=== PATIENT | female | born 1945 | race Caucasian/White ===

== ENCOUNTER 2017-02-02 13:15 | Outpatient (CLI) | payer MEDICARE, OTHER | END 2017-02-02 13:16 | disposition home or self-care (01) | LOC: RT.S 13:15 | PROVIDERS: ATTEND Registered Nurse | DX: R00.2 Palpitations (principal) | CPT/HCPCS: 93005 ==

== ENCOUNTER 2017-04-15 22:32 | Outpatient (CLI) | payer MEDICARE, OTHER | END 2017-04-15 22:33 | disposition critical access hospital (66) | LOC: EMS 22:32 | PROVIDERS: ATTEND Surgery | DX: R00.2 Palpitations (principal); M79.602 Pain in left arm | CPT/HCPCS: A0425; A0427 ==

== ENCOUNTER 2017-04-15 23:08 | Emergency (ER) | payer MEDICARE, OTHER ==
[2017-04-15 23:24] LABS: BILIRUBIN,URINE NEGATIVE (NEGATIVE)
[2017-04-15 23:27] LABS: UA w/ MICROSCOPIC CHARGE YES
[2017-04-15 23:30] LABS: UR CULTURE IF IND INDICATED
[2017-04-15] MEDS ORDERED: SODIUM CHLORIDE 0.9% 1,000 ML IV ONE (23:46)
[2017-04-15 23:53] LABS: BASOPHILS % (AUTO) 0.9 %; EOSINOPHILS # (AUTO) 0.2 10^3/uL (0.0-0.7); EOSINOPHILS % (AUTO) 4.7 %; HCT - HEMATOCRIT 43.8 % (37.0-47.0); HGB - HEMOGLOBIN 14.5 g/dL (12.0-16.0); LYMPHOCYTES # (AUTO) 1.4 10^3/uL (1.5-3.5); LYMPHOCYTES % (AUTO) 27.1 %; MEAN CORPUSCULAR HEMOGLOBIN 28.8 pg (27.0-31.0); MEAN CORPUSCULAR HGB CONC 33.2 g/dL (32.0-36.0); MEAN CORPUSCULAR VOLUME 86.8 fL (81.0-99.0); MEAN PLATELET VOLUME 9.2 fL (7.9-10.8); MONOCYTES # (AUTO) 0.4 10^3/uL (0.0-1.0); MONOCYTES % (AUTO) 7.9 %; NEUTROPHILS # (AUTO) 3.1 10^3/uL (1.5-6.6); NEUTROPHILS % (AUTO) 59.4 %; NUCLEATED RED BLOOD CELLS AUTO 0.1 /100WBC; RED BLOOD COUNT 5.05 10^6/uL (4.20-5.40); RED CELL DISTRIBUTION WIDTH 13.9 % (12.0-15.0); UNCORRECTED WHITE BLOOD COUNT 5.2 x10^3/uL; WHITE BLOOD COUNT 5.2 x10^3/uL (4.8-10.8)
[2017-04-16 00:02] LABS: ALBUMIN/GLOBULIN RATIO 1.4 (1.0-2.2); BILIRUBIN,TOTAL 0.3 mg/dL (0.2-1.0); CALCIUM 9.4 mg/dL (8.5-10.3); CREATININE 0.6 mg/dL (0.4-1.0); TOTAL PROTEIN 7.1 g/dL (6.7-8.2)
[2017-04-16 00:03] LABS: D-DIMER < 200.0 ng/mL (200.0-255.0)
[2017-04-16 00:08] LABS: INR 0.9 (0.8-1.2); PT - PROTHROMBIN TIME 9.9 secs (9.9-12.6)
--- NOTE | 2017-04-16 00:10 | XRAY Preliminary Report ---
Exam: XR Chest 1 View IMPRESSION: Small hiatal hernia. No acute cardiopulmonary process. [facility] SITE ID: [id number]
--- NOTE | 2017-04-16 00:13 | XRAY Report ---
EXAM: CHEST RADIOGRAPHY EXAM DATE: 04/15/2017 11:32 PM. CLINICAL HISTORY: Chest pressure. COMPARISON: 01/19/2011. TECHNIQUE: 1 view. FINDINGS: Lungs/Pleura: No focal opacities evident. No pleural effusion. No pneumothorax. Mediastinum: Within exam limitations, cardiomediastinal contour is normal. Other: Small hiatal hernia. IMPRESSION: Small hiatal hernia. No acute cardiopulmonary process. [facility] Referring Provider Line: [phone] SITE ID: [id number]
[2017-04-16 00:16] LABS: PARTIAL THROMBOPLASTIN TIME 26.6 secs (24.9-33.3)
[2017-04-16] MEDS ORDERED: SODIUM CHLORIDE 0.9% 1,000 ML IV ONE (00:24)
--- NOTE | 2017-04-16 00:55 | ED Physician Documentation ---
PD HPI CHEST PAIN - Stated complaint Stated Complaint: PALPATATIONS - Chief complaint Chief Complaint: Cardiac - History obtained from History obtained from: Patient, EMS - History of Present Illness Timing - onset: Today Timing - onset during: Rest Timing - details: Gradual onset, Now resolved Associated symptoms: Palpitations. No: Shortness of air, Diaphoresis, Nausea, Vomiting, Feeling faint / dizzy Similar symptoms before: No diagnosis Recently seen: Not recently seen - Additional information Additional information: Patient is a 71 year old female with a history of anxiety who is presenting to the emergency department for palpitations. patient states that they started tonight. patient states that she can normally control them but tonight they lasted more than usual. Patient denied any chest pain, shortness of breath, nausea, vomiting or drug use. Review of Systems Constitutional: denies: Fever, Chills, Myalgias Eyes: denies: Decreased vision, Photophobia Ears: denies: Ear pain, Drainage/discharge Nose: denies: Congestion, Sinus pressure / pain Throat: denies: Sore throat Cardiac: reports: Palpitations. denies: Chest pain / pressure, Calf pain Respiratory: denies: Dyspnea, Cough, Wheezing GI: denies: Nausea, Vomiting, Constipation : denies: Dysuria, Frequency, Hesitancy Skin: denies: Rash, Lesions, Laceration (s) Musculoskeletal: denies: Neck pain, Back pain, Extremity pain Neurologic: denies: Generalized weakness, Focal weakness, Altered mental status , Headache, Head injury, LOC Psychiatric: reports: Anxiety. 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 HEENT: Cataracts - Present Medications Home Medications: Ambulatory Orders Medication Instructions Recorded Confirmed Triamterene/Hydrochlorothiazid 1 tab PO DAILY 04/15/17 04/15/17 [Triamterene-Hctz 37.5-25 mg Cp] - Allergies Allergies/Adverse Reactions: Allergies Allergy/AdvReac Type Severity Reaction Status Date / Time Penicillins Allergy Unknown UNKNOWN Verified 04/15/17 23:15 Sulfa (Sulfonamide Allergy Unknown UNKNOWN Verified 04/15/17 23:15 Antibiotics) - Social History Does the pt smoke?: No Smoking Status: Never smoker PD ED PE NORMAL - Vitals Vital signs reviewed: Yes - General General: Alert and oriented X 3, Well developed/nourished - HEENT HEENT: Atraumatic, PERRL - Neck Neck: Supple, no meningeal sign, No JVD - Respiratory Respiratory: No respiratory distress, Clear bilaterally - Abdomen Abdomen: Soft, Non tender, Non distended - Derm Derm: Normal color, Warm and dry, No rash - Extremities Extremities: No deformity, No calf tenderness / cord - Neuro Neuro: Alert and oriented X 3, No motor deficit, No sensory deficit, Normal speech PD ED PE EXPANDED - Cardiac Cardiac: Tachy Results - Vitals Vitals: Vital Signs - 24 hr 04/15/17 04/15/17 04/15/17 23:12 23:18 23:48 Temperature 36.6 C Heart Rate 139 H 123 H 127 H Respiratory 22 18 20 Rate Blood Pressure 183/130 H 186/122 H O2 Saturation 96 98 99 04/16/17 00:05 Temperature Heart Rate 129 H Respiratory 16 Rate Blood Pressure 184/109 H O2 Saturation 97 Oxygen O2 Source Room air - EKG (time done) 2327 Rate: Rate (enter#) (125) Rhythm: Sinus tachycardia [place]: Normal Intervals: Normal ID QRS: LVH Ischemia: Normal ST segments Compare to prior EKG: Unchanged from prior EKG - Labs Labs: Laboratory Tests 04/15/17 04/15/17 04/15/17 23:16 23:34 23:34 WBC 5.2 RBC 5.05 Hgb 14.5 Hct 43.8 MCV 86.8 MCH 28.8 MCHC 33.2 RDW 13.9 Plt Count 208 MPV 9.2 Neut # 3.1 Lymph # 1.4 L [place] # 0.4 Eos # 0.2 Baso # 0.0 Absolute Nucleated RBC 0.00 Nucleated RBCs 0.1 PT INR APTT D-Dimer Sodium 142 Potassium 4.0 Chloride 106 Carbon Dioxide 28 Anion Gap 8.0 BUN 16 Creatinine 0.6 Estimated GFR (MDRD) 98 Glucose 115 H Calcium 9.4 Total Bilirubin 0.3 AST 19 ALT 15 Alkaline Phosphatase 55 Troponin I B-Natriuretic Peptide Total Protein 7.1 Albumin 4.1 Globulin 3.0 Albumin/Globulin Ratio 1.4 Lipase 55 H TSH Urine Color YELLOW Urine Clarity CLEAR Urine pH 7.0 Ur Specific [place] <=1.005 Urine Protein NEGATIVE Urine Glucose (UA) NEGATIVE Urine Ketones NEGATIVE Urine Occult Blood TRACE-LYSE Urine Nitrite NEGATIVE Urine Bilirubin NEGATIVE Urine Urobilinogen 0.2 (NORMAL) Ur Leukocyte Esterase SMALL H Urine RBC 0-5 Urine WBC 4-5 Ur Squamous Epith Cells FEW Squamous Urine Bacteria Few Ur Microscopic Review INDICATED Urine Culture Comments INDICATED Urine Opiates Screen NEGATIVE Ur Oxycodone Screen NEGATIVE Urine Methadone Screen NEGATIVE Ur Propoxyphene Screen NEGATIVE Ur Barbiturates Screen NEGATIVE Ur Tricyclics Screen NEGATIVE Ur Phencyclidine Scrn NEGATIVE Ur Amphetamine Screen NEGATIVE U Methamphetamines Scrn NEGATIVE U Benzodiazepines Scrn NEGATIVE Urine Cocaine Screen NEGATIVE U Cannabinoids Screen NEGATIVE Ethyl Alcohol 6.1 04/15/17 04/15/17 04/15/17 23:34 23:34 23:34 WBC RBC Hgb Hct MCV MCH MCHC RDW Plt Count MPV Neut # Lymph # [place] # Eos # Baso # Absolute Nucleated RBC Nucleated RBCs PT 9.9 INR 0.9 APTT 26.6 D-Dimer < 200.0 L Sodium Potassium Chloride Carbon Dioxide Anion Gap BUN Creatinine Estimated GFR (MDRD) Glucose Calcium Total Bilirubin AST ALT Alkaline Phosphatase Troponin I < 0.04 B-Natriuretic Peptide 164 H Total Protein Albumin Globulin Albumin/Globulin Ratio Lipase TSH Urine Color Urine Clarity Urine pH Ur Specific [place] Urine Protein Urine Glucose (UA) Urine Ketones Urine Occult Blood Urine Nitrite Urine Bilirubin Urine Urobilinogen Ur Leukocyte Esterase Urine RBC Urine WBC Ur Squamous Epith Cells Urine Bacteria Ur Microscopic Review Urine Culture Comments Urine Opiates Screen Ur Oxycodone Screen Urine Methadone Screen Ur Propoxyphene Screen Ur Barbiturates Screen Ur Tricyclics Screen Ur Phencyclidine Scrn Ur Amphetamine Screen U Methamphetamines Scrn U Benzodiazepines Scrn Urine Cocaine Screen U Cannabinoids Screen Ethyl Alcohol 04/15/17 23:34 WBC RBC Hgb Hct MCV MCH MCHC RDW Plt Count MPV Neut # Lymph # [place] # Eos # Baso # Absolute Nucleated RBC Nucleated RBCs PT INR APTT D-Dimer Sodium Potassium Chloride Carbon Dioxide Anion Gap BUN Creatinine Estimated GFR (MDRD) Glucose Calcium Total Bilirubin AST ALT Alkaline Phosphatase Troponin I B-Natriuretic Peptide Total Protein Albumin Globulin Albumin/Globulin Ratio Lipase TSH 1.85 Urine Color Urine Clarity Urine pH Ur Specific [place] Urine Protein Urine Glucose (UA) Urine Ketones Urine Occult Blood Urine Nitrite Urine Bilirubin Urine Urobilinogen Ur Leukocyte Esterase Urine RBC Urine WBC Ur Squamous Epith Cells Urine Bacteria Ur Microscopic Review Urine Culture Comments Urine Opiates Screen Ur Oxycodone Screen Urine Methadone Screen Ur Propoxyphene Screen Ur Barbiturates Screen Ur Tricyclics Screen Ur Phencyclidine Scrn Ur Amphetamine Screen U Methamphetamines Scrn U Benzodiazepines Scrn Urine Cocaine Screen U Cannabinoids Screen Ethyl Alcohol - Rads (name of study) chest x-ray Radiology: Final report received (small hiatal hernia, no cardiopulmonary abnormality) PD MEDICAL DECISION MAKING - ED course Complexity details: reviewed old records, reviewed results, re-evaluated patient , considered differential, d/w patient, d/w family ED course: Patient was seen and examined at bedside. IV access was gained and labs were drawn. ekg was performed and showed sinus tach. urine was collected. patient was treated with a fluid bolus. chest x-ray was performed and within normal limits. Patient's diagnostics including troponin, tsh, tox and dimer where all negative. patient stated that she did not want any more fluids and that she just wanted to go home. Patient was with her daughter and they understood the risks and stated that they would followup with their doctor tomorrow (today) patient was discharge in stable condition but still tachycardic. Departure - Departure Disposition: 01 Home, Self Care Clinical Impression: Sinus tachycardia Condition: Good Instructions: ED Palpitations Follow-Up: Effie Mcdowell ARNP [Primary Care Provider] - Tomorrow Comments: Your diagnostics today were within normal limits. I am not sure exactly why your blood pressure and heart rate are so high. It is imperative that you follow up with your doctor tomorrow. You should return to the emergency department for any chest pain, shortness of breath, new, worsening or uncontrollable symptoms.
[2017-04-16 01:10] VITALS: BP 159/101
== END 2017-04-16 01:11 | disposition home or self-care (01) ==
LOC: EDUNIT# → ED 23:08 → SUPCPDRO 23:08 → ED 04-16 01:11
DX: R00.0 Tachycardia, unspecified (principal); I10 Essential (primary) hypertension; F41.9 Anxiety disorder, unspecified; J44.9 Chronic obstructive pulmonary disease, unspecified; K21.9 Gastro-esophageal reflux disease without esophagitis; J45.909 Unspecified asthma, uncomplicated
CPT/HCPCS: 36415; 71010; 80053; 80306; 81001; 83690; 83880; 84443; 84484; 85025; 85379; 85610; 85730; 87086; 93005; 99284; G0480; 80320; 81003

== ENCOUNTER 2017-05-04 11:48 | Outpatient (CLI) | payer MEDICARE, OTHER | END 2017-05-04 11:49 | disposition home or self-care (01) | LOC: DI 11:48 | PROVIDERS: ATTEND Registered Nurse | DX: R00.0 Tachycardia, unspecified (principal); I10 Essential (primary) hypertension; I51.7 Cardiomegaly | CPT/HCPCS: 93306 ==

== ENCOUNTER 2019-02-13 09:03 | Outpatient (CLI) | payer MEDICARE, OTHER ==
--- NOTE | 2019-02-13 10:25 | XRAY Report ---
Reason: PAIN IN LEFT HIP Procedure Date: 02/13/2019 Accession Number: [id number] / [id number] Procedure: XR - Lumbar Spine 2 View CPT Code: FULL RESULT: EXAM: LUMBOSACRAL SPINE RADIOGRAPHY EXAM DATE: 02/13/2019 09:34 AM. CLINICAL HISTORY: Pain in left hip. COMPARISONS: ABDOMEN/PELVIS W04/26/2013 10:57 AM. TECHNIQUE: 2 views. FINDINGS: Alignment: Compared to the CT examination in 2013 there has been progression of degenerative changes in the lumbar spine with a similar overall configuration of dextroconvex thoracolumbar scoliosis followed by a levoconvex lumbar scoliosis, approximately 14 degrees, centered about L3. There is marked hyperlordosis on the lateral view. As seen, there is 6 mm of retrolisthesis of L2 on L3, possibly progressed compared to the [address]. Bones: Five [id number]-[id number] lumbar vertebral bodies are present. The bones are qualitatively osteopenic; this limits evaluation for underlying fractures or masses. Within these limitations no definite fracture is detected. Disks: There is multilevel loss of disk space height with prominent osteophytosis, most pronounced at L1 through L3. Facets: Facet arthropathy is difficult to quantify due to osteopenia but most pronounced in the lower lumbar spine where it is moderate to severe. Sacroiliac Joints: Unremarkable. Soft Tissues: Normal. The visualized bowel gas pattern is normal. IMPRESSION: Degenerative changes with scoliosis, examination limited by osteopenia. [facility]
--- NOTE | 2019-02-13 10:25 | XRAY Report ---
Reason: PAIN IN LEFT HIP Procedure Date: 02/13/2019 Accession Number: [id number] / [id number] Procedure: XR - Hip w/Pelvis 2-3V LT CPT Code: FULL RESULT: EXAM: LEFT HIP RADIOGRAPHY EXAM DATE: 02/13/2019 09:34 AM. CLINICAL HISTORY: Pain in left hip. COMPARISON: None. TECHNIQUE: 2 views. FINDINGS: Bones: Normal. No fractures or bone lesion. Joints: Moderate marginal osteophytosis with mild joint space loss. No subluxation. Soft Tissues: Normal. No soft tissue swelling. IMPRESSION: Degenerative changes. [facility]
== END 2019-02-13 09:04 | disposition home or self-care (01) ==
LOC: DI 09:03
PROVIDERS: ATTEND Registered Nurse
DX: M16.12 Unilateral primary osteoarthritis, left hip (principal); M41.87 Other forms of scoliosis, lumbosacral region; M85.88 Other specified disorders of bone density and structure, other site
CPT/HCPCS: 72100

== ENCOUNTER 2019-12-25 11:15 | Outpatient (CLI) | payer MEDICARE, OTHER ==
[2019-12-25 12:18] LABS: BASOPHILS % (AUTO) 0.5 %; EOSINOPHILS # (AUTO) 0.1 10^3/uL (0.0-0.7); EOSINOPHILS % (AUTO) 1.3 %; HGB - HEMOGLOBIN 14.5 g/dL (12.0-16.0); LYMPHOCYTES # (AUTO) 1.5 10^3/uL (1.5-3.5); LYMPHOCYTES % (AUTO) 20.4 %; MEAN CORPUSCULAR HEMOGLOBIN 29.5 pg (27.0-31.0); MEAN CORPUSCULAR HGB CONC 32.8 g/dL (32.0-36.0); MEAN CORPUSCULAR VOLUME 89.8 fL (81.0-99.0); MEAN PLATELET VOLUME 11.3 fL (7.9-10.8); MONOCYTES # (AUTO) 0.6 10^3/uL (0.0-1.0); MONOCYTES % (AUTO) 7.8 %; NEUTROPHILS # (AUTO) 5.2 10^3/uL (1.5-6.6); NEUTROPHILS % (AUTO) 69.7 %; PLT - PLATELET COUNT 264 10^3/uL (130-450); RED BLOOD COUNT 4.92 10^6/uL (4.20-5.40); RED CELL DISTRIBUTION WIDTH 13.3 % (12.0-15.0); WHITE BLOOD COUNT 7.4 x10^3/uL (4.8-10.8)
[2019-12-25 12:37] LABS: ALBUMIN 4.4 g/dL (3.2-5.5); ALBUMIN/GLOBULIN RATIO 1.6 (1.0-2.2); BILIRUBIN,TOTAL 0.7 mg/dL (0.2-1.0); CALCIUM 9.5 mg/dL (8.5-10.3); CREATININE 0.6 mg/dL (0.4-1.0); TOTAL PROTEIN 7.2 g/dL (6.7-8.2)
== END 2019-12-25 23:59 | disposition home or self-care (01) ==
LOC: LAB.R 11:15
PROVIDERS: ATTEND Registered Nurse
DX: I10 Essential (primary) hypertension (principal); Z86.39 Personal history of other endocrine, nutritional and metabolic disease
CPT/HCPCS: 80053; 82728; 83540; 84466; 85025

== ENCOUNTER 2020-04-08 13:10 | Outpatient (CLI) | payer MEDICARE, OTHER ==
[2020-04-08 18:18] LABS: BASOPHILS # (AUTO) 0.1 10^3/uL (0.0-0.1); BASOPHILS % (AUTO) 0.8 %; EOSINOPHILS # (AUTO) 0.1 10^3/uL (0.0-0.7); EOSINOPHILS % (AUTO) 1.6 %; HGB - HEMOGLOBIN 13.8 g/dL (12.0-16.0); LYMPHOCYTES # (AUTO) 1.5 10^3/uL (1.5-3.5); LYMPHOCYTES % (AUTO) 18.4 %; MEAN CORPUSCULAR HEMOGLOBIN 29.7 pg (27.0-31.0); MEAN CORPUSCULAR HGB CONC 32.3 g/dL (32.0-36.0); MEAN PLATELET VOLUME 11.5 fL (7.9-10.8); MONOCYTES # (AUTO) 0.7 10^3/uL (0.0-1.0); MONOCYTES % (AUTO) 8.2 %; NEUTROPHILS # (AUTO) 5.6 10^3/uL (1.5-6.6); NEUTROPHILS % (AUTO) 70.6 %; PLT - PLATELET COUNT 241 10^3/uL (130-450); RED BLOOD COUNT 4.64 10^6/uL (4.20-5.40); RED CELL DISTRIBUTION WIDTH 13.2 % (12.0-15.0); WHITE BLOOD COUNT 7.9 x10^3/uL (4.8-10.8)
[2020-04-08 18:57] LABS: ALBUMIN 4.5 g/dL (3.2-5.5); ALBUMIN/GLOBULIN RATIO 1.7 (1.0-2.2); CALCIUM 9.7 mg/dL (8.5-10.3); CREATININE 0.6 mg/dL (0.4-1.0); TOTAL PROTEIN 7.1 g/dL (6.7-8.2)
[2020-04-08 19:06] LABS: THYROID STIMULATING HORMONE 1.05 uIU/mL (0.34-5.60)
[2020-04-08 19:07] LABS: FREE T3 3.15 pg/mL (2.5-3.9)
[2020-04-08 19:08] LABS: FREE T4 (FREE THYROXINE) 0.93 ng/dL (0.58-1.64)
== END 2020-04-08 23:59 | disposition home or self-care (01) ==
LOC: LAB.WCP 13:10
PROVIDERS: ATTEND Family Medicine
DX: R06.09 Other forms of dyspnea (principal); I10 Essential (primary) hypertension; K21.9 Gastro-esophageal reflux disease without esophagitis; J44.9 Chronic obstructive pulmonary disease, unspecified
CPT/HCPCS: 36415; 80053; 83880; 84439; 84443; 84481; 85025

== ENCOUNTER 2020-04-10 08:11 | Outpatient (CLI) | payer MEDICARE, OTHER ==
--- NOTE | 2020-04-10 08:13 | XRAY Report ---
PROCEDURE: Chest 2 View X-Ray INDICATIONS: DYSPNEA, COPD TECHNIQUE: 2 view(s) of the chest. COMPARISON: None. FINDINGS: Surgical changes and devices: None. Lungs and pleura: No pleural effusions or pneumothorax. There is hyperinflation. No focal infiltrate . Mediastinum: Mediastinal contours are normal. Heart size is enlarged. Bones and chest wall: No suspicious bony abnormalities. Soft tissues appear unremarkable. Small to moderate hiatal hernia is likely present. IMPRESSION: No acute cardiopulmonary pathology. Hyperinflation and small to moderate size hiatal her becky. Reviewed by: Hay Banks MD on 04/10/2020 8:11 AM PDT Approved by: Hay Banks MD on 04/10/2020 8:11 AM PDT Station ID: [id number]
== END 2020-04-10 23:59 | disposition home or self-care (01) ==
LOC: DI.WCP 08:11
PROVIDERS: ATTEND Family Medicine
DX: R06.09 Other forms of dyspnea (principal); I10 Essential (primary) hypertension; K21.9 Gastro-esophageal reflux disease without esophagitis; J44.9 Chronic obstructive pulmonary disease, unspecified; K44.9 Diaphragmatic hernia without obstruction or gangrene
CPT/HCPCS: 71046

== ENCOUNTER 2020-12-04 07:51 | Outpatient (CLI) | payer MEDICARE, OTHER ==
--- NOTE | 2020-12-04 10:55 | CARDIAC PROCEDURE NOTE ---
Stress Test Report Service Date: 12/04/20 Ordering Provider: Dr Burton Indication for Test: Exertional dyspnea Cardiac Risk Factors: HTN, post-menopausal status, advanced age. Type of Stress Test: ETT with Echocardiography Procedure: After signing informed consent, the patient underwent a Modified Anthony -protocol treadmill stress test, with Echo imaging pre- and post-exercise. Resting HR: 72 Peak HR: 124 (89% pred max HR for age) Resting BP: 141/92 Peak BP: 151/85 The patient exercised for 1:33 min only, she had difficulty adjusting to treadmill exercise due to arthritis. She achieved 89% pred max HR for age and only 1.19 METS. The patient had no chest pain, but developed SOB after about 20 sec. Her O2 saturation was 96-98% on room air throughout the test. She described her SOB and fatigue as severe and could not exercise longer. Resting EKG: Normal sinus rhythm, rate 72, left interventricular conduction delay, poor R wave progression. EKG at peak: Rare PVC, no new ST segment or T wave changes develop. Summary: 1) Abnormal resting EKG 2) Very poor exercise tolerance 3) No ischemic changes seen by EKG criteria 4) Echo images were reported separately as: Non-diagnostic due to poor functional capacity and poor Echo image quality. IMPRESSION: 1) Non-diagnostic stress test to evaluate for coronary ischemia. 2) This patient's cardiac risk: High. RECOMMENDATIONS: 1) Repeat test using Lexiscan pharmacologic stress and nuclear myocardial perfusion imaging. 2) Consider starting Enteric coated ASA 81 mg daily (not prn). 3) Consider long-acting scheduled Nitrates (Imdur) if chest pain if frequent, as the patient describes.
== END 2020-12-04 07:52 | disposition home or self-care (01) ==
LOC: DI 07:51
PROVIDERS: ATTEND Family Medicine
DX: R94.39 Abnormal result of other cardiovascular function study (principal); I10 Essential (primary) hypertension; Z78.0 Asymptomatic menopausal state
CPT/HCPCS: 93350

== ENCOUNTER 2021-03-28 10:45 | Outpatient (CLI) | payer MEDICARE, OTHER ==
[2021-03-28 18:16] LABS: BASOPHILS # (AUTO) 0.1 10^3/uL (0.0-0.1); BASOPHILS % (AUTO) 0.9 %; EOSINOPHILS # (AUTO) 0.2 10^3/uL (0.0-0.7); EOSINOPHILS % (AUTO) 2.2 %; HCT - HEMATOCRIT 42.3 % (37.0-47.0); HGB - HEMOGLOBIN 13.2 g/dL (12.0-16.0); LYMPHOCYTES # (AUTO) 1.7 10^3/uL (1.5-3.5); LYMPHOCYTES % (AUTO) 24.6 %; MEAN CORPUSCULAR HEMOGLOBIN 28.8 pg (27.0-31.0); MEAN CORPUSCULAR HGB CONC 31.2 g/dL (32.0-36.0); MEAN CORPUSCULAR VOLUME 92.2 fL (81.0-99.0); MEAN PLATELET VOLUME 11.5 fL (7.9-10.8); MONOCYTES # (AUTO) 0.6 10^3/uL (0.0-1.0); MONOCYTES % (AUTO) 8.3 %; NEUTROPHILS # (AUTO) 4.3 10^3/uL (1.5-6.6); NEUTROPHILS % (AUTO) 63.9 %; PLT - PLATELET COUNT 285 10^3/uL (130-450); RED BLOOD COUNT 4.59 10^6/uL (4.20-5.40); WHITE BLOOD COUNT 6.7 x10^3/uL (4.8-10.8)
[2021-03-28 18:47] LABS: THYROID STIMULATING HORMONE 1.18 uIU/mL (0.34-5.60)
[2021-03-28 18:56] LABS: ALBUMIN 4.3 g/dL (3.2-5.5); ALBUMIN/GLOBULIN RATIO 1.8 (1.0-2.2); ALKALINE PHOSPHATASE 59 IU/L (42-121); ALT ALANINE AMINOTRANSFERASE 15 IU/L (10-60); AST ASPARTATE AMINOTRANSFERASE 19 IU/L (10-42); BILIRUBIN,TOTAL 0.6 mg/dL (0.2-1.0); BUN - BLOOD UREA NITROGEN 18 mg/dL (6-20); CALCIUM 9.7 mg/dL (8.5-10.3); CARBON DIOXIDE - CO2 27 mmol/L (21-32); CHLORIDE 100 mmol/L (101-111); CHOL/HDL RATIO 3.6 (<4.4); CHOLESTEROL 250 mg/dL; CREATININE 0.7 mg/dL (0.4-1.0); GFR - MDRD 81 (>89); GLUCOSE 111 mg/dL (70-100); HDL CHOLESTEROL 70 mg/dL; LDL CHOLESTEROL,CALCULATED 122 mg/dL; LDL/HDL RATIO 1.7 (<4.4); POTASSIUM 4.2 mmol/L (3.5-5.0); SODIUM 137 mmol/L (135-145); TOTAL PROTEIN 6.7 g/dL (6.7-8.2); TRIGLYCERIDES 291 mg/dL; VLDL CHOLESTEROL 58 mg/dL
== END 2021-03-28 23:59 | disposition home or self-care (01) ==
LOC: LAB.WCP 10:45
PROVIDERS: ATTEND Family Medicine
DX: K44.9 Diaphragmatic hernia without obstruction or gangrene (principal); I10 Essential (primary) hypertension; R10.13 Epigastric pain; R06.09 Other forms of dyspnea; K21.9 Gastro-esophageal reflux disease without esophagitis; J44.9 Chronic obstructive pulmonary disease, unspecified
CPT/HCPCS: 36415; 80053; 80061; 83721; 84443; 85025

== ENCOUNTER 2021-05-19 12:00 | Outpatient (CLI) | payer MEDICARE, OTHER | END 2021-05-19 12:01 | disposition critical access hospital (66) | LOC: EMS 12:00 | DX: R51.9 Headache, unspecified (principal); M54.2 Cervicalgia; R21 Rash and other nonspecific skin eruption | CPT/HCPCS: A0425; A0429 ==

== ENCOUNTER 2021-05-19 12:46 | Emergency (ER) | payer MEDICARE, OTHER ==
--- NOTE | 2021-05-19 12:53 | ED Physician Documentation ---
History of Present Illness - Stated complaint Stated Complaint: HEAD PX/RASH - History obtained from History obtained from: Patient - Additonal information Additional information: 76-year-old woman presents by ambulance because she has pain from already diagnosed shingles on the left side of her neck and head. She was seen in the clinic and is already on acyclovir. She is also on something for pain but she does not know what. Pain has been worse over the last 3 days or so. 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 HEENT: Cataracts - Present Medications Home Medications: Ambulatory Orders Medication Instructions Recorded Confirmed Triamterene/Hydrochlorothiazid 1 tab PO DAILY 04/15/17 04/15/17 [Triamterene-Hctz 37.5-25 mg Cp] HYDROcod/ACETAM 5/325 [[place] 5/325] 1 - 2 tab PO Q6H PRN #15 tablet 05/19/21 - Allergies Allergies/Adverse Reactions: Allergies Allergy/AdvReac Type Severity Reaction Status Date / Time Penicillins Allergy Unknown UNKNOWN Verified 04/15/17 23:15 Sulfa (Sulfonamide Allergy Unknown UNKNOWN Verified 04/15/17 23:15 Antibiotics) - Social History Does the pt smoke?: No Smoking Status: Never smoker PD ED PE NORMAL - Vitals Vital signs reviewed: Yes - General General: Alert and oriented X 3, No acute distress - HEENT HEENT: PERRL, EOMI - Neck Neck: Other (She has shingles on the left side of her neck) - Cardiac Cardiac: RRR, No murmur - Respiratory Respiratory: No respiratory distress, Clear bilaterally - Abdomen Abdomen: Soft, Non tender - Back Back: No CVA TTP, No spinal TTP - Neuro Neuro: Alert and oriented X 3, Normal speech Results - Vitals Vitals: Vital Signs - 24 hr 05/19/21 12:54 Temperature 37.2 C Heart Rate 93 Respiratory 16 Rate Blood Pressure 152/107 H O2 Saturation 98 Oxygen O2 Source Room air PD MEDICAL DECISION MAKING - ED course ED course: 76-year-old woman presents by ambulance for pain from known shingles which is already being treated. She is on pain medication, but she does not know what so we will call the clinic and find out so we can give her something else. Spoke with Dr Baum, he had put her on gabapentin, will add hydrocodone I am prescribing a short course of short-acting opioid pain medication for this patient. 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 I have discussed that the opioids are for short term therapy only, and will not be refilled from the ED. Departure - Departure Disposition: Home, Self Care Clinical Impression: Shingles Qualifiers: Herpes zoster complications: without complications Qualified Code(s): B02.9 - Zoster without complications Condition: Good Record reviewed to determine appropriate education?: Yes Instructions: ED Shingles Prescriptions: HYDROcod/ACETAM 5/325 [[place] 5/325] 1 - 2 tab PO Q6H PRN #15 tablet PRN Reason: Pain Comments: I spoke with Dr. Baum, he gave you gabapentin for pain. To this I am adding hydrocodone. Call your doctor to arrange a follow-up appointment, make the next available appointment. In the interim, return anytime if worse or if new symptoms develop. I am prescribing a short course of narcotic pain medication for you. These are potentially dangerous and addictive medications that should be used carefully. These medications may constipate you. Take an deps-adt-itpkjct stool softener (docusate) twice daily with plenty of water while taking these medications. If you go 24 hours without a bowel movement, take xsty-zkc-vucbdoi miralax, per package instructions. Do not drink or drive while taking these medications. If you received narcotic or sedating medications while in the emergency department, do not drive for 24 hours. Store this medication in a safe, secure place and out of reach of children. It is a violation of federal law to give or sell this medication to another person or to use in a manner other than prescribed. The ED will not refill narcotic prescriptions, including prescriptions lost or stolen. To dispose of unwanted medications: 1. [facility] at [address] in [place] has a medication drop box. They accept prescription medications (in pill form) Wednesday through Wednesday 9:00 a.m. to 5:00 p.m. 2. The [facility] accepts prescription medications (in pill form only) for disposal year round. Call for more information. 3. Contact the [facility] for the next [facility] sponsored prescription drug collection event. , [phone], or [phone]; Note that many narcotic pain relievers also contain Tylenol/acetaminophen. Please ensure that your total dose of acetaminophen from all sources does not exceed 3 g (3000 mg) per day.
[2021-05-19 12:57] VITALS: BP 152/107
[2021-05-19] MEDS ORDERED: HYDROcod/ACETAM 5/325 MG TABLET PO STA (13:13)
== END 2021-05-19 13:38 | disposition home or self-care (01) ==
LOC: EDUNIT# → ED 12:46
DX: B02.9 Zoster without complications (principal); I10 Essential (primary) hypertension
CPT/HCPCS: 99283; A9270

== ENCOUNTER 2021-11-05 12:01 | Outpatient (CLI) | payer MEDICARE, OTHER ==
[2021-11-05 17:56] LABS: BASOPHILS # (AUTO) 0.1 10^3/uL (0.0-0.1); BASOPHILS % (AUTO) 0.7 %; EOSINOPHILS # (AUTO) 0.1 10^3/uL (0.0-0.7); EOSINOPHILS % (AUTO) 1.1 %; HGB - HEMOGLOBIN 13.9 g/dL (12.0-16.0); LYMPHOCYTES # (AUTO) 1.6 10^3/uL (1.5-3.5); LYMPHOCYTES % (AUTO) 22.1 %; MEAN CORPUSCULAR HEMOGLOBIN 27.9 pg (27.0-31.0); MEAN CORPUSCULAR HGB CONC 31.6 g/dL (32.0-36.0); MEAN CORPUSCULAR VOLUME 88.2 fL (81.0-99.0); MEAN PLATELET VOLUME 12.1 fL (7.9-10.8); MONOCYTES # (AUTO) 0.5 10^3/uL (0.0-1.0); MONOCYTES % (AUTO) 7.1 %; NEUTROPHILS # (AUTO) 4.9 10^3/uL (1.5-6.6); NEUTROPHILS % (AUTO) 68.7 %; PLT - PLATELET COUNT 245 10^3/uL (130-450); RED BLOOD COUNT 4.99 10^6/uL (4.20-5.40); RED CELL DISTRIBUTION WIDTH 13.9 % (12.0-15.0); WHITE BLOOD COUNT 7.1 x10^3/uL (4.8-10.8)
[2021-11-05 18:24] LABS: ALBUMIN 4.6 g/dL (3.2-5.5); ALBUMIN/GLOBULIN RATIO 1.6 (1.0-2.2); ALKALINE PHOSPHATASE 60 IU/L (42-121); ALT ALANINE AMINOTRANSFERASE 17 IU/L (10-60); AST ASPARTATE AMINOTRANSFERASE 20 IU/L (10-42); BILIRUBIN,TOTAL 0.8 mg/dL (0.2-1.0); BUN - BLOOD UREA NITROGEN 16 mg/dL (6-20); CALCIUM 9.5 mg/dL (8.5-10.3); CARBON DIOXIDE - CO2 27 mmol/L (21-32); CHLORIDE 99 mmol/L (101-111); CHOL/HDL RATIO 4.1 (<4.4); CHOLESTEROL 251 mg/dL; CREATININE 0.8 mg/dL (0.4-1.0); GFR - MDRD 70 (>89); GLUCOSE 115 mg/dL (70-100); HDL CHOLESTEROL 61 mg/dL; LDL CHOLESTEROL,CALCULATED 150 mg/dL; LDL/HDL RATIO 2.5 (<4.4); POTASSIUM 3.8 mmol/L (3.5-5.0); SODIUM 136 mmol/L (135-145); TOTAL PROTEIN 7.4 g/dL (6.7-8.2); TRIGLYCERIDES 199 mg/dL; VLDL CHOLESTEROL 40 mg/dL
[2021-11-05 18:32] LABS: THYROID STIMULATING HORMONE 1.03 uIU/mL (0.34-5.60)
== END 2021-11-05 12:02 | disposition home or self-care (01) ==
LOC: LAB.WCP 12:01
PROVIDERS: ATTEND Family Medicine
DX: I10 Essential (primary) hypertension (principal); K44.9 Diaphragmatic hernia without obstruction or gangrene; K30 Functional dyspepsia; R06.09 Other forms of dyspnea; K21.9 Gastro-esophageal reflux disease without esophagitis; J44.9 Chronic obstructive pulmonary disease, unspecified
CPT/HCPCS: 36415; 80053; 80061; 83721; 84443; 85025

== ENCOUNTER 2021-11-16 10:54 | Outpatient (CLI) | payer MEDICARE, OTHER ==
[2021-11-16] MEDS ORDERED: ALBUTEROL 1 PUFF INH STA (12:16)
== END 2021-11-16 10:55 | disposition home or self-care (01) ==
LOC: RT 10:54
PROVIDERS: ATTEND Family Medicine
DX: J44.9 Chronic obstructive pulmonary disease, unspecified (principal)
CPT/HCPCS: 94060

== ENCOUNTER 2022-05-23 16:49 | Emergency (ER) | payer MEDICARE, OTHER ==
--- OUTSIDE RECORDS SUMMARY | 2022-05-23 16:55 | EXTERNAL MEDICAL SUMMARY RPT | Continuity of Care Document ---
:1945 Author Organization [facility] Address [address] [place] [address] Phone Allergies No information. Encounters No information. Functional Status No information. Immunizations No information. Medications No information. Problems No information. Procedures No information. Results/Labs test date author facility value unit interpret ation Result panel 1 (unknown) (no (unknown) (unknown) (no value) (units (unk nown) date) unknown) (unknown) (no (unknown) (unknown) 04/17/22 (units (unkno wn) date) unknown) (unknown) (no (unknown) (unknown) [address] [place] [address] (units (unknown) date) unknown) (unknown) (no (unknown) (unknown) [id number] (units (unkno wn) date) unknown) (unknown) (no (unknown) (unknown) 66 beats per minute (unit s (unknown) date) with rhythm sinus. unknown) During stress, no convincing ischemic (unknown) (no (unknown) (unknown) Accession Number: (units (unknown) date) [id number] unknown) (unknown) (no (unknown) (unknown) Age/Sex: 76 / F Date (uni ts (unknown) date) of Service: unknown) (unknown) (no (unknown) (unknown) [place] [address] (unit s (unknown) date) unknown) (unknown) (no (unknown) (unknown) CARDIAC STRESS: The (unit s (unknown) date) patient underwent IV unknown) Lexiscan perfusion study under the (unknown) (no (unknown) (unknown) JUAN M MELARA - MRN: (uni ts (unknown) date) [id number] unknown) (unknown) (no (unknown) (unknown) CONCLUSION: I will (units (unknown) date) call this study likely unknown ) a normal myocardial perfusion study (unknown) (no (unknown) (unknown) COPIES MNE: PALV; (units (unknown) date) unknown) (unknown) (no (unknown) (unknown) DATE OF SERVICE: (units (unknown) date) unknown) (unknown) (no (unknown) (unknown) DICTATING MD/COPIES (unit s (unknown) date) TO: Myke Gibbs MD unknown) (unknown) (no (unknown) (unknown) : 1945 (units (unknown) date) Acct:[id number] unknown) (unknown) (no (unknown) (unknown) GATED STUDY: Resting (uni ts (unknown) date) LV ejection fraction unknown) 59 percent and stress LV ejection (unknown) (no (unknown) (unknown) INDICATION: (units (un known) date) Pharmacological unknown) perfusion study. (unknown) (no (unknown) (unknown) INDICATION: Shortness (un its (unknown) date) of breath with unknown) underlying hypertension. (unknown) (no (unknown) (unknown) [facility] (units (unknown) date) unknown) (unknown) (no (unknown) (unknown) Loc: [facility] (units (unkn own) date) unknown) (unknown) (no (unknown) (unknown) Lung/heart ratio (units (unknown) date) 0.27, which is within unknown) normal limits. (unknown) (no (unknown) (unknown) MYOCARDIAL PERFUSION (uni ts (unknown) date) SCAN: Stress supine, unknown) resting supine, and stress prone (unknown) (no (unknown) (unknown) Nuclear Medicine (units (unknown) date) Report unknown) (unknown) (no (unknown) (unknown) Ordering Provider: (units (unknown) date) Rigoberto Burton MD unknown) (unknown) (no (unknown) (unknown) Patient: JUAN M MELARA (un its (unknown) date) MR#: [id number] unknown) (unknown) (no (unknown) (unknown) Procedure: NM gabrielle (units (unknown) date) perf SPECT R+S pharm unknown) (unknown) (no (unknown) (unknown) RADIOPHARMACEUTICAL: (uni ts (unknown) date) 25.9 mCi unknown) technetium-99m Myoview IV was injected at stress (unknown) (no (unknown) (unknown) RAW DATA: There is (units (unknown) date) breast shadow seen. 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 (unknown) (no (unknown) (unknown) and 10.8 mCi (units (u nknown) date) technetium-99m Myoview unknown ) IV was injected at rest. (unknown) (no (unknown) (unknown) artifact, which got (unit s (unknown) date) improved during stress unknown ) prone images. On raw data, there (unknown) (no (unknown) (unknown) as (units (unkno wn) date) unknown) (unknown) (no (unknown) (unknown) breast shadow and (units (unknown) date) increased unknown) subdiaphragmatic activity, as stated above. Left (unknown) (no (unknown) (unknown) breath and headache, (uni ts (unknown) date) which got improved unknown) after coffee intake. (unknown) (no (unknown) (unknown) changes or (units (unk nown) date) significant unknown) arrhythmias seen. The patient had moderate shortness of (unknown) (no (unknown) (unknown) dd: 04/17/2022 (units (unknown) date) 17:27:00 dt: unknown) 04/17/2022 18:36:00 (unknown) (no (unknown) (unknown) diastolic volume 114 (uni ts (unknown) date) mL. TID ratio 0.89, unknown) which is within normal limits. (unknown) (no (unknown) (unknown) doc#: [id number]/job#: (uni ts (unknown) date) [id number] unknown) (unknown) (no (unknown) (unknown) end (units (unkno wn) date) unknown) (unknown) (no (unknown) (unknown) fraction 65 percent (unit s (unknown) date) without any obvious unknown) wall motion abnormalities. Resting (unknown) (no (unknown) (unknown) goes against the (units (unknown) date) diagnosis of previous unknown) transmural myocardial infarction. No (unknown) (no (unknown) (unknown) images were compared (uni ts (unknown) date) to each other. Resting unknown ) supine images revealed moderate (unknown) (no (unknown) (unknown) images; however, (units (unknown) date) stress prone images unknown) remaining having mildly decreased (unknown) (no (unknown) (unknown) ischemic (units (unkno wn) date) electrocardiographic unknown) changes. Hence, overall this is a low-risk (unknown) (no (unknown) (unknown) mildly decreased (units (unknown) date) perfusion of basal unknown) anterolateral wall. Stress supine images (unknown) (no (unknown) (unknown) myocardial perfusion (uni ts (unknown) date) study. unknown) (unknown) (no (unknown) (unknown) of distal anterior (units (unknown) date) septum. No reversible unknown) ischemia. (unknown) (no (unknown) (unknown) perfusion (units (unkn own) date) unknown) (unknown) (no (unknown) (unknown) remained (units (unkno wn) date) hemodynamically unknown) stable. Baseline blood pressure 130/80 and heart rate (unknown) (no (unknown) (unknown) revealed mildly (units (unknown) date) decreased perfusion of unknown ) basal anterolateral wall as well as mid (unknown) (no (unknown) (unknown) size, moderately (units (unknown) date) decreased perfusion of unknown ) mid to distal anterior septum as well (unknown) (no (unknown) (unknown) supervision of an (units (unknown) date) attending staff as per unknown ) standard protocol. The patient (unknown) (no (unknown) (unknown) to distal anterior (units (unknown) date) septum. It got unknown) significantly improved during stress prone (unknown) (no (unknown) (unknown) ventricular function (uni ts (unknown) date) is preserved without unknown) any wall motion abnormalities, which (unknown) (no (unknown) (unknown) was (units (unkno wn) date) unknown) (unknown) (no (unknown) (unknown) with evidence of (units (unknown) date) breast tissue and as unknown) well as diaphragmatic tissue attenuation Result panel 2 (unknown) (no date) (unknown) (unknown) Negative (units (unkn own) unknown) (unknown) (no date) (unknown) (unknown) Negative (units (unkn own) unknown) Result panel 3 (unknown) (no (unknown) (unknown) (no value) (units (unk nown) date) unknown) (unknown) (no (unknown) (unknown) [address] [place] [address] (units (unknown) date) unknown) (unknown) (no (unknown) (unknown) [id number] (units (unkno wn) date) unknown) (unknown) (no (unknown) (unknown) 66 beats per minute (unit s (unknown) date) with rhythm sinus. unknown) During stress, no convincing ischemic (unknown) (no (unknown) (unknown) Accession Number: (units (unknown) date) unknown) (unknown) (no (unknown) (unknown) Age/Sex: 76 / F Date (uni ts (unknown) date) of Service: unknown) (unknown) (no (unknown) (unknown) JOSE Mar [id number] (unit s (unknown) date) unknown) (unknown) (no (unknown) (unknown) CARDIAC STRESS: The (unit s (unknown) date) patient underwent IV unknown) Lexiscan perfusion study under the (unknown) (no (unknown) (unknown) JUAN M MELARA - MRN: (uni ts (unknown) date) [id number] unknown) (unknown) (no (unknown) (unknown) CONCLUSION: I will (units (unknown) date) call this study likely unknown ) a normal myocardial perfusion study (unknown) (no (unknown) (unknown) COPIES MNE: PALV; (units (unknown) date) unknown) (unknown) (no (unknown) (unknown) DATE OF SERVICE: (units (unknown) date) unknown) (unknown) (no (unknown) (unknown) DICTATING MD/COPIES (unit s (unknown) date) TO: Myke Gibbs MD unknown) (unknown) (no (unknown) (unknown) : 1945 (units (unknown) date) Acct:[id number] unknown) (unknown) (no (unknown) (unknown) Draft (units (unkno wn) date) unknown) (unknown) (no (unknown) (unknown) GATED STUDY: Resting (uni ts (unknown) date) LV ejection fraction unknown) 59 percent and stress LV ejection (unknown) (no (unknown) (unknown) INDICATION: (units (un known) date) Pharmacological unknown) perfusion study. (unknown) (no (unknown) (unknown) INDICATION: Shortness (un its (unknown) date) of breath with unknown) underlying hypertension. (unknown) (no (unknown) (unknown) [facility] (units (unknown) date) unknown) (unknown) (no (unknown) (unknown) Loc: [facility] (units (unkn own) date) unknown) (unknown) (no (unknown) (unknown) Lung/heart ratio (units (unknown) date) 0.27, which is within unknown) normal limits. (unknown) (no (unknown) (unknown) MYOCARDIAL PERFUSION (uni ts (unknown) date) SCAN: Stress supine, unknown) resting supine, and stress prone (unknown) (no (unknown) (unknown) Nuclear Medicine (units (unknown) date) Report unknown) (unknown) (no (unknown) (unknown) Ordering Provider: (units (unknown) date) unknown) (unknown) (no (unknown) (unknown) Patient: JUAN M MELARA (un its (unknown) date) MR#: [id number] unknown) (unknown) (no (unknown) (unknown) Procedure: (units (unk nown) date) unknown) (unknown) (no (unknown) (unknown) RADIOPHARMACEUTICAL: (uni ts (unknown) date) 25.9 mCi unknown) technetium-99m Myoview IV was injected at stress (unknown) (no (unknown) (unknown) RAW DATA: There is (units (unknown) date) breast shadow seen. 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 (unknown) (no (unknown) (unknown) and 10.8 mCi (units (u nknown) date) technetium-99m Myoview unknown ) IV was injected at rest. (unknown) (no (unknown) (unknown) artifact, which got (unit s (unknown) date) improved during stress unknown ) prone images. On raw data, there (unknown) (no (unknown) (unknown) as (units (unkno wn) date) unknown) (unknown) (no (unknown) (unknown) breast shadow and (units (unknown) date) increased unknown) subdiaphragmatic activity, as stated above. Left (unknown) (no (unknown) (unknown) breath and headache, (uni ts (unknown) date) which got improved unknown) after coffee intake. (unknown) (no (unknown) (unknown) changes or (units (unk nown) date) significant unknown) arrhythmias seen. The patient had moderate shortness of (unknown) (no (unknown) (unknown) dd: 04/17/2022 (units (unknown) date) 17:27:00 dt: unknown) 04/17/2022 18:36:00 (unknown) (no (unknown) (unknown) diastolic volume 114 (uni ts (unknown) date) mL. TID ratio 0.89, unknown) which is within normal limits. (unknown) (no (unknown) (unknown) doc#: [id number]/job#: (uni ts (unknown) date) [id number] unknown) (unknown) (no (unknown) (unknown) end (units (unkno wn) date) unknown) (unknown) (no (unknown) (unknown) fraction 65 percent (unit s (unknown) date) without any obvious unknown) wall motion abnormalities. Resting (unknown) (no (unknown) (unknown) goes against the (units (unknown) date) diagnosis of previous unknown) transmural myocardial infarction. No (unknown) (no (unknown) (unknown) images were compared (uni ts (unknown) date) to each other. Resting unknown ) supine images revealed moderate (unknown) (no (unknown) (unknown) images; however, (units (unknown) date) stress prone images unknown) remaining having mildly decreased (unknown) (no (unknown) (unknown) ischemic (units (unkno wn) date) electrocardiographic unknown) changes. Hence, overall this is a low-risk (unknown) (no (unknown) (unknown) mildly decreased (units (unknown) date) perfusion of basal unknown) anterolateral wall. Stress supine images (unknown) (no (unknown) (unknown) myocardial perfusion (uni ts (unknown) date) study. unknown) (unknown) (no (unknown) (unknown) of distal anterior (units (unknown) date) septum. No reversible unknown) ischemia. (unknown) (no (unknown) (unknown) perfusion (units (unkn own) date) unknown) (unknown) (no (unknown) (unknown) remained (units (unkno wn) date) hemodynamically unknown) stable. Baseline blood pressure 130/80 and heart rate (unknown) (no (unknown) (unknown) revealed mildly (units (unknown) date) decreased perfusion of unknown ) basal anterolateral wall as well as mid (unknown) (no (unknown) (unknown) size, moderately (units (unknown) date) decreased perfusion of unknown ) mid to distal anterior septum as well (unknown) (no (unknown) (unknown) supervision of an (units (unknown) date) attending staff as per unknown ) standard protocol. The patient (unknown) (no (unknown) (unknown) to distal anterior (units (unknown) date) septum. It got unknown) significantly improved during stress prone (unknown) (no (unknown) (unknown) ventricular function (uni ts (unknown) date) is preserved without unknown) any wall motion abnormalities, which (unknown) (no (unknown) (unknown) was (units (unkno wn) date) unknown) (unknown) (no (unknown) (unknown) with evidence of (units (unknown) date) breast tissue and as unknown) well as diaphragmatic tissue attenuation Social History No information. Vital Signs No information.
[2022-05-23 17:11] LABS: BILIRUBIN,URINE NEGATIVE (NEGATIVE); GLUCOSE, URINE (UA) NEGATIVE (NEGATIVE); KETONES,URINE (UA) NEGATIVE (NEGATIVE); LEUKOCYTE ESTERASE, URINE MODERATE (NEGATIVE); NITRITE,URINE NEGATIVE (NEGATIVE); OCCULT BLOOD,URINE NEGATIVE (NEGATIVE); PH,URINE 5.5 PH (5.0-7.5); PROTEIN,URINE NEGATIVE (NEGATIVE); UROBILINOGEN,URINE 0.2 (NORMAL) E.U./dL (NORMAL)
[2022-05-23 17:13] LABS: CLARITY,URINE HAZY (CLEAR)
[2022-05-23] MEDS ORDERED: SODIUM CHLORIDE 0.9% 1,000 ML IV STA (17:13)
[2022-05-23] MEDS ORDERED: HYDROmorphone 1 MG/ML CARPUJECT IVP STA (17:13)
--- NOTE | 2022-05-23 17:16 | ED Physician Documentation ---
History of Present Illness - Stated complaint Stated Complaint: ABD PX - Chief complaint Chief Complaint: Abd Pain - Additonal information Additional information: 77-year-old female presents to the emergency department for evaluation of right upper quadrant and right flank pain. Symptoms began several days ago. She has exquisite discomfort mostly when laying supine and she reports that the pain is continuous. She states she has had similar in the past and they told her that her stomach liked to move. Past surgical history does include Alisha cystectomy. Also reports a history of pancreatitis. 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 Mildly dyspneic at baseline though not hypoxic Review of Systems Constitutional: denies: Fever, Chills Cardiac: reports: Reviewed and negative Respiratory: reports: Dyspnea, Wheezing GI: reports: Abdominal Pain. denies: Nausea, Vomiting, Diarrhea, Hematemesis : reports: Reviewed and negative Skin: reports: Reviewed and negative PD PAST MEDICAL HISTORY - Past Medical History Cardiovascular: Hypertension Respiratory: Asthma, COPD Endocrine/Autoimmune: None GI: GERD, Hiatal hernia : None Psych: None Musculoskeletal: None Derm: None - Past Surgical History General: Cholecystectomy, Appendectomy, Colonoscopy /[facility]: Tubal ligation HEENT: Cataracts - Present Medications Home Medications: Ambulatory Orders Medication Instructions Recorded Confirmed Triamterene/Hydrochlorothiazid 1 tab PO DAILY 04/15/17 04/15/17 [Triamterene-Hctz 37.5-25 mg Cp] HYDROcod/ACETAM 5/325 [Okay 5/325] 1 - 2 tab PO Q6H PRN #15 tablet 05/19/21 oxyCODONE [Roxicodone] 5 mg PO TID PRN #20 tablet 05/23/22 - Allergies Allergies/Adverse Reactions: Allergies Allergy/AdvReac Type Severity Reaction Status Date / Time Penicillins Allergy Unknown UNKNOWN Verified 05/23/22 16:59 Sulfa (Sulfonamide Allergy Unknown UNKNOWN Verified 05/23/22 16:59 Antibiotics) - Social History Does the pt smoke?: No Smoking Status: Never smoker PD ED PE EXPANDED - General General: Alert, In Pain - Cardiac Cardiac: Regular Rate, Radial strong equal, Pedal strong equal, Cap refill < 2 sec - Respiratory Respiratory: Clear to ausultation summer. No: Distress - Abdomen Abdomen: Tender to palpation, RUQ (Focal tenderness to the right flank and right upper quadrant. Negative McBurney's. Nonperitoneal. pain is worse when laying supine) - Back Back: Other (Thoracic kyphosis) - Derm Derm: Normal color. No: Rash - GCS Eye Opening: Spontaneous Motor: Obeys Commands Verbal: Oriented Total: 15 Results - Vitals Vitals: Vital Signs - 24 hr 05/23/22 05/23/22 05/23/22 16:54 18:58 19:51 Temperature 36.8 C 36.5 C Heart Rate 119 H 84 89 Respiratory 24 18 18 Rate Blood Pressure 178/85 H 160/84 H 146/72 H O2 Saturation 97 96 98 Oxygen O2 Source Room air - Labs Labs: Laboratory Tests 05/23/22 05/23/22 05/23/22 17:00 17:19 17:19 WBC 7.6 RBC 4.53 Hgb 12.7 Hct 39.9 MCV 88.1 MCH 28.0 MCHC 31.8 L RDW 13.7 Plt Count 263 MPV 11.1 H Neut # (Auto) 5.3 Lymph # (Auto) 1.6 [place] # (Auto) 0.6 Eos # (Auto) 0.1 Baso # (Auto) 0.1 Absolute Nucleated RBC 0.00 Nucleated RBC % 0.0 Sodium 138 Potassium 3.9 Chloride 105 Carbon Dioxide 24 Anion Gap 9.0 BUN 15 Creatinine 0.7 Estimated GFR (MDRD) 81 L Glucose 116 H Calcium 9.2 Total Bilirubin 0.7 AST 23 ALT 18 Alkaline Phosphatase 57 Total Protein 6.9 Albumin 4.2 Globulin 2.7 Albumin/Globulin Ratio 1.6 Lipase 46 Urine Color YELLOW Urine Clarity HAZY Urine pH 5.5 Ur Specific [place] 1.020 Urine Protein NEGATIVE Urine Glucose (UA) NEGATIVE Urine Ketones NEGATIVE Urine Occult Blood NEGATIVE Urine Nitrite NEGATIVE Urine Bilirubin NEGATIVE Urine Urobilinogen 0.2 (NORMAL) Ur Leukocyte Esterase MODERATE H Urine RBC 0-5 Urine WBC 11-25 H Ur Squamous Epith Cells FEW Squamous Urine Bacteria Few Ur Microscopic Review INDICATED Urine Culture Comments INDICATED - Rads (name of study) CT abd Radiology: Final report received (No urinary stone or hydroureteronephrosis. No acute appearing abnormality identified within the abdomen or pelvis. Possible prior fundoplication with the wrap largely above the level of the hiatus versus large hiatal hernia. Anterior diaphragmatic hernia containing fat. Colonic diverticulosis) PD MEDICAL DECISION MAKING - ED course Complexity details: reviewed results, re-evaluated patient, considered differential, d/w patient ED course: 77-year-old female presents emergency department for evaluation of several days right-sided abdominal pain. She had no nausea vomiting or diarrhea but reported that the pain was worse especially when she laid supine. Previous surgical history included appendectomy as well as cholecystectomy and Yessenia fundoplication. On exam focal tenderness was elicited in the right upper quadrant but it was a nonperitoneal exam. Labs obtained in the emergency department included electrolytes urine and CBC. There were no acute worrisome serum abnormalities. Her urine shows some bacteria but patient is asymptomatic therefore we will defer treatment given lack of fevers or leukocytosis. CT of the abdomen showed no acute appearing abnormality identified however there was an anterior diaphragmatic hernia containing fat. This was at the level of her reported pain. Here in the emergency department the patient received a dose of Dilaudid followed by fentanyl with good improvement in pain. She is tolerating sips of clear liquids. I making the advisement that she follow-up closely with her primary care doctor for referral to a surgeon though this is likely a nonoperative case. Emergent return precautions were discussed for worsening symptoms. I am prescribing a short course of short-acting opioid pain medication for this patient. I have reviewed the patients INTENSIVE CARE UNIT REGISTERED NURSE and no concerning findings were not ed. I have discussed that the opioids are for short term therapy only, and will not be refilled from the ED. Departure - Departure Disposition: 01 Home, Self Care Clinical Impression: Diaphragmatic hernia Qualifiers: Obstruction and gangrene presence: without obstruction or gangrene Qualified Code(s): K44.9 - Diaphragmatic hernia without obstruction or gangrene Abdominal pain Qualifiers: Abdominal location: right upper quadrant Qualified Code(s): R10.11 - Right upper quadrant pain Condition: Stable Record reviewed to determine appropriate education?: Yes Prescriptions: oxyCODONE [Roxicodone] 5 mg PO TID PRN #20 tablet PRN Reason: Pain Comments: Ivanna you are seen today in the emergency department because for several days you have been having pain in the right upper portion of your abdomen. Today the labs in the emergency department including your blood count and e lectrolytes are all essentially normal. We did do a CT of the abdomen. There were no acute abdominal findings that were surgical. However you do have a diaphragmatic hernia in the level of the location where you have pain. This hernia contains fat. This is likely something you have had for a long time that has simply flared over the last few days. I would like you to discuss this ED visit with your primary care doctor. A referral to a general surgeon may be indicated though its not likely that this would be something that requires operative repair. I sent a prescription for some oxycodone to the [facility] in [place]. If you find that despite taking this medication you are having worsening symptoms or any uncontrolled vomiting you are to return immediately to the ER. I am prescribing a short course of narcotic pain medication for you. These are potentially dangerous and addictive medications that should be used carefully. These medications may constipate you. Take an havg-ips-qgslmgg stool softener (docusate) twice daily with plenty of water while taking these medications. If you go 24 hours without a bowel movement, take awqt-enx-vryynpn miralax, per package instructions. Do not drink or drive while taking these medications. If you received narcotic or sedating medications while in the emergency department, do not drive for 24 hours. Store this medication in a safe, secure place and out of reach of children. It is a violation of federal law to give or sell this medication to another person or to use in a manner other than prescribed. The ED will not refill narcotic prescriptions, including prescriptions lost or stolen. To dispose of unwanted medications: 1. [facility] [address] [facility] in [place] has a medication drop box. They accept prescription medications (in pill form) Wednesday through Wednesday 9:00 a.m. to 5:00 p.m. 2. The [facility] [employer] accepts prescription medications (in pill form only) for disposal year round. Call for more information. 3. Contact the [facility] for the next [employer] sponsored prescription drug collection event. , [phone], or [phone]; Note that many narcotic pain relievers also contain Tylenol/acetaminophen. Please ensure that your total dose of acetaminophen from all sources does not exceed 3 g (3000 mg) per day.
[2022-05-23 17:25] LABS: BACTERIA,URINE Few /HPF (None Seen); RBC,URINE 0-5 /HPF (0-5); SQUAMOUS EPITHELIAL CELL,UR FEW Squamous (<= Few)
[2022-05-23 17:31] LABS: BASOPHILS # (AUTO) 0.1 10^3/uL (0.0-0.1); BASOPHILS % (AUTO) 0.7 %; EOSINOPHILS # (AUTO) 0.1 10^3/uL (0.0-0.7); EOSINOPHILS % (AUTO) 1.2 %; HCT - HEMATOCRIT 39.9 % (37.0-47.0); HGB - HEMOGLOBIN 12.7 g/dL (12.0-16.0); LYMPHOCYTES # (AUTO) 1.6 10^3/uL (1.5-3.5); LYMPHOCYTES % (AUTO) 20.9 %; MEAN CORPUSCULAR HGB CONC 31.8 g/dL (32.0-36.0); MEAN CORPUSCULAR VOLUME 88.1 fL (81.0-99.0); MEAN PLATELET VOLUME 11.1 fL (7.9-10.8); MONOCYTES # (AUTO) 0.6 10^3/uL (0.0-1.0); MONOCYTES % (AUTO) 7.2 %; NEUTROPHILS # (AUTO) 5.3 10^3/uL (1.5-6.6); NEUTROPHILS % (AUTO) 69.9 %; PLT - PLATELET COUNT 263 10^3/uL (130-450); RED BLOOD COUNT 4.53 10^6/uL (4.20-5.40); RED CELL DISTRIBUTION WIDTH 13.7 % (12.0-15.0); WHITE BLOOD COUNT 7.6 x10^3/uL (4.8-10.8)
[2022-05-23 17:41] LABS: ALBUMIN 4.2 g/dL (3.2-5.5); ALBUMIN/GLOBULIN RATIO 1.6 (1.0-2.2); BILIRUBIN,TOTAL 0.7 mg/dL (0.2-1.0); CALCIUM 9.2 mg/dL (8.5-10.3); CREATININE 0.7 mg/dL (0.4-1.0); POTASSIUM 3.9 mmol/L (3.5-5.0); TOTAL PROTEIN 6.9 g/dL (6.7-8.2)
[2022-05-23] MEDS ORDERED: ONDANSETRON 4 MG/2 ML VIAL IVP STA (18:25)
[2022-05-23] MEDS ORDERED: PROCHLORPERAZINE 10 MG/2 ML VIAL IVP STA (18:48)
--- NOTE | 2022-05-23 19:12 | CT Report ---
PROCEDURE: Abdomen/Pelvis WO INDICATIONS: ITS.REASON: Right flank, right abdominal pain TECHNIQUE: Noncontrast 5 mm thick sections acquired from the diaphragms to the symphysis. 5 mm coronal and sagi ttal reformats were then performed. For radiation dose reduction, the following was used: automated exposure control, adjustment of mA and/or kV according to patient size. COMPARISON: None. FINDINGS: Image quality: Excellent. FINDINGS: Visualized lung bases: No pleural effusion. 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 Liver and biliary tree: Unremarkable noncontrast appearance. Gallbladder: Surgically absent. Spleen: Unremarkable noncontrast appearance. Pancreas: Unremarkable noncontrast appearance. Adrenal glands: Unremarkable noncontrast appearance. Kidneys and ureters: No stones or hydronephrosis. Gastrointestinal tract: Possible prior fundoplication with the wrap largely above the level of the hi atus. No evidence of mechanical bowel obstruction. Moderate predominantly sigmoid colonic diverticulo sis without evidence of acute diverticulitis. Appendix not visualized however no secondary signs of a ppendicitis identified. Peritoneal cavity: No free air or free fluid. Bladder: No stones visualized. Pelvic organs: Unremarkable noncontrast appearance. Vasculature: No abdominal aortic aneurysm. Musculoskeletal: Degenerative change of the spine. Left convexity curvature of the lumbar spine. IMPRESSION: 1. No urinary stone or hydroureteronephrosis. 2. No acute appearing abnormality identified within the abdomen or pelvis. 3. Possible prior fundoplication with the wrap largely above the level of the hiatus, versus large hi atal hernia. 4. Anterior diaphragmatic hernia containing fat. 5. Colonic diverticulosis without evidence of acute diverticulitis. Reviewed by: Chino Wright MD on 05/23/2022 7:11 PM PDT Approved by: Chino Wright MD on 05/23/2022 7:11 PM PDT Station ID: [id number]
[2022-05-23] MEDS ORDERED: fentaNYL 100 MCG/2 ML VIAL IVP STA (19:30)
[2022-05-23 20:50] VITALS: BP 166/72
== END 2022-05-23 20:49 | disposition home or self-care (01) ==
LOC: ED 16:49
DX: K44.9 Diaphragmatic hernia without obstruction or gangrene (principal); I10 Essential (primary) hypertension
CPT/HCPCS: 36415; 74176; 80053; 81001; 83690; 85025; 87086; 96374; 96375; 99284; 99285; J1170; 81003

== ENCOUNTER 2022-06-02 08:14 | Outpatient (CLI) | payer MEDICARE, OTHER ==
--- NOTE | 2022-06-02 14:35 | XRAY Report ---
PROCEDURE: Ribs 2 View RT INDICATIONS: R ANTERIOR RIB PX TECHNIQUE: 3 views of the right ribs were acquired. COMPARISON: None FINDINGS: Surgical changes and devices: None. Bones and chest wall: No fractures or dislocations. No suspicious bony lesions. Overlying soft tis sues appear unremarkable. Lungs and pleura: The visualized lung appears clear. No pleural effusions or pneumothorax are visib le. IMPRESSION: No visualized acute fracture or dislocation. However, occult injury cannot be excluded. Recommend eduardo rt interval imaging follow-up in 7-10 days as clinically indicated for additional evaluation. Reviewed by: Ana M Ventura MD on 06/02/2022 2:33 PM PDT Approved by: Ana M Ventura MD on 06/02/2022 2:33 PM PDT Station ID: [id number]
== END 2022-06-02 08:15 | disposition home or self-care (01) ==
LOC: DI.N 08:14
PROVIDERS: ATTEND Physician Assistant Medical
DX: R10.11 Right upper quadrant pain (principal)

== ENCOUNTER 2022-11-14 11:00 | Outpatient (CLI) | payer MEDICARE, OTHER | END 2022-11-14 23:59 | disposition critical access hospital (66) | LOC: EMS 11:00 | DX: M25.552 Pain in left hip (principal); W01.0XXA Fall on same level from slipping, tripping and stumbling without subsequent striking against object, initial encounter; Y92.008 Other place in unspecified non-institutional (private) residence as the place of occurrence of the external cause | CPT/HCPCS: A0425; A0427 ==

== ENCOUNTER 2022-11-14 11:22 | Emergency (ER) | payer MEDICARE, OTHER ==
[2022-11-14] MEDS ORDERED: HYDROmorphone 1 MG/ML CARPUJECT IVP STA (11:38)
--- NOTE | 2022-11-14 11:38 | ED Physician Documentation ---
History of Present Illness - Stated complaint Stated Complaint: FALL/LT HIP PX - Additonal information Additional information: 77-year-old female is brought to the emergency department for evaluation of acute left hip pain after ground-level fall. Fall was witnessed by family. She was simply walking tripped on the dog's toy and fell directly onto the left hip. There was no head strike. There was no loss of consciousness. Patient is not anticoagulated. Granddaughter at bedside reports patient has a history of osteoporosis. The patient is alert and oriented denying pain in the head neck or back otherwise. On presentation the left hip is flexed appears internally rotated. Neurovascular intact pt reveived 50 mcg fentanyl by EMS prior to arrival Patient does have a history of hypertension and known oxygen dependent COPD. Denying chest pain or shortness of air Review of Systems Constitutional: denies: Fever Eyes: reports: Reviewed and negative Nose: reports: Reviewed and negative Cardiac: reports: Reviewed and negative Respiratory: reports: Reviewed and negative : reports: Reviewed and negative Musculoskeletal: reports: Joint pain PD PAST MEDICAL HISTORY - Past Medical History Cardiovascular: Hypertension Respiratory: Asthma, COPD Endocrine/Autoimmune: None GI: GERD, Hiatal hernia : None Psych: None Musculoskeletal: None Derm: None - Past Surgical History General: Cholecystectomy, Appendectomy, Colonoscopy /[employer]: Tubal ligation HEENT: Cataracts - Present Medications Home Medications: Ambulatory Orders Medication Instructions Recorded Confirmed Triamterene/Hydrochlorothiazid 1 tab PO DAILY 04/15/17 04/15/17 [Triamterene-Hctz 37.5-25 mg Cp] oxyCODONE [Roxicodone] 5 mg PO TID PRN #20 tablet 05/23/22 Albuterol Sulf [Ventolin Hfa 1 - 2 puffs INH Q4HR PRN 11/14/22 11/14/22 Inhaler] Fluticasone Propion/Salmeterol 1 each IH BID 11/14/22 11/14/22 [Fluticasone-Salmeterol 250-50] Pantoprazole Sodium 40 mg PO DAILY 11/14/22 11/14/22 oxyCODONE [Roxicodone] 5 mg PO TID PRN #20 tablet 11/14/22 - Allergies Allergies/Adverse Reactions: Allergies Allergy/AdvReac Type Severity Reaction Status Date / Time Penicillins Allergy Unknown UNKNOWN Verified 11/14/22 11:33 Sulfa (Sulfonamide Allergy Unknown UNKNOWN Verified 11/14/22 11:33 Antibiotics) - Social History Does the pt smoke?: No Smoking Status: Never smoker PD ED PE NORMAL - General General: Alert and oriented X 3, No acute distress, Well developed/nourished - HEENT HEENT: Atraumatic, Moist mucous membranes - Neck Neck: Supple, no meningeal sign, No adenopathy - Cardiac Cardiac: RRR, No murmur, Strong equal pulses - Respiratory Respiratory: No respiratory distress, Clear bilaterally - Abdomen Abdomen: Normal bowel sounds, Non tender - Derm Derm: Normal color, Warm and dry, Other (No signs of traumatic ecchymosis or bruising on extremities or thorax) - Extremities Extremities: No: Normal ROM s pain (Left hip tender the lateral greater trochanter. No ecchymosis no obvious swelling. Hip remains in a flexed position internally rotated. Neurovascular intact distally. 2+ DP pulse.) Results - Vitals Vitals: Vital Signs - 24 hr 11/14/22 11/14/22 11/14/22 11:27 14:42 16:00 Temperature 36.1 C L Heart Rate 78 70 60 Respiratory 20 20 18 Rate Blood Pressure 168/117 H 161/82 H 194/75 H O2 Saturation 96 97 95 Oxygen O2 Source Room air - Labs Labs: Laboratory Tests 11/14/22 11/14/22 11/14/22 11:59 11:59 11:59 WBC 7.1 RBC 4.69 Hgb 13.3 Hct 42.2 MCV 90.0 MCH 28.4 MCHC 31.5 L RDW 13.2 Plt Count 224 MPV 11.5 H Neut # (Auto) 4.9 Lymph # (Auto) 1.5 [place] # (Auto) 0.5 Eos # (Auto) 0.1 Baso # (Auto) 0.0 Absolute Nucleated RBC 0.00 Nucleated RBC % 0.0 PT 11.8 INR 1.0 Sodium 138 Potassium 3.6 Chloride 105 Carbon Dioxide 24 Anion Gap 9.0 BUN 14 Creatinine 0.7 Estimated GFR (MDRD) 81 L Glucose 144 H Calcium 8.8 Total Bilirubin 0.6 AST 24 ALT 24 Alkaline Phosphatase 63 Total Protein 6.8 Albumin 4.1 Globulin 2.7 Albumin/Globulin Ratio 1.5 Lipase 34 - Rads (name of study) left hip/pelvis xr Relevant Findings:: Final report received (Mildly displaced left superior rami fracture) pelvic CT Relevant Findings:: Final report received (Mildly displaced fractures of superior and inferior left pubic rami) PD Medical Decision Making - ED course Complexity details: reviewed results, re-evaluated patient, considered differential, d/w patient, d/w family ED course: 77-year-old female who has past medical history most significant for hypertension and known oxygen dependent COPD presents to the emergency department for evaluation of acute left hip pain after ground-level fall that was witnessed by family at home. She simply tripped over her dog's toy. There is no head strike or loss of consciousness. She presents the emergency department with an exquisitely tender left hip internally rotated. Allows minimal movement. Subsequently a plain film x-ray did show a left superior rami mildly displaced fracture. A CT also demonstrated a mildly displaced fracture of the superior and inferior left pubic rami. EMS had provided the patient with 50 mics of fentanyl and I administered 1 mg of Dilaudid. Patient was quite nauseated which improved with Zofran. Following the CT results and the findings of a stable class I pelvic fracture I did ask nursing staff to ambulate the patient at the bedside with a walker. This was fairly tolerated. She did require moderate assist but was able to get out of bed and take some halting steps. I did obtain a CBC and electrolytes and per my interpretation no acute findings are seen. The patient historically lives independently. Her daughter who lives on the [place] is away on a 10-day cruise. Her granddaughter is visiting. I discussed with granddaughter at the bedside that this stable pelvic fracture is not typically admitted to the hospital as it is a weightbearing. However the granddaughter states that there is no family members appropriate or able to help care for her at home thus there is no safe discharge. I have asked social work to consult. Social work has been able to arrange for the patient to be admitted to [facility] tomorrow 11/15/2022. I have filled out the skilled nursing transition orders. I have also signed a hard prescription for as needed oxycodone. Departure - Departure Clinical Impression: Ground-level fall, History of hypertension, History of COPD Fracture of left superior pubic ramus Qualifiers: Encounter type: initial encounter Fracture type: closed Qualified Code(s): S32.512A - Fracture of superior rim of left pubis, initial encounter for closed fracture Fracture of left inferior pubic ramus Qualifiers: Encounter type: initial encounter Fracture type: closed Qualified Code(s): S32.592A - Other specified fracture of left pubis, initial encounter for closed fracture Prescriptions: oxyCODONE [Roxicodone] 5 mg PO TID PRN #20 tablet PRN Reason: Pain
[2022-11-14] MEDS ORDERED: ONDANSETRON 4 MG/2 ML VIAL IVP STA (12:02)
--- NOTE | 2022-11-14 12:02 | XRAY Report ---
PROCEDURE: Hip w/Pelvis 2-3V LT INDICATIONS: glf; left hip pain TECHNIQUE: Portable frontal view of the pelvis and crosstable lateral view of the left hip were perfo rmed. COMPARISON: None. FINDINGS: Technique and positioning limiting evaluation. Bones: Mildly displaced fracture of the left superior pubic ramus. Mild degenerative changes of the h ips. Advanced degenerative changes of the spine. No suspicious bony lesions. Soft tissues: The visualized bowel gas pattern is normal. No suspicious soft tissue calcifications. IMPRESSION: Mildly displaced left superior rami fracture. Reviewed by: Redd Mars DO on 11/14/2022 11:01 AM BRAD Approved by: Redd Mars DO on 11/14/2022 11:01 AM BRAD Station ID: [id number]
[2022-11-14 12:05] LABS: BASOPHILS % (AUTO) 0.6 %; EOSINOPHILS # (AUTO) 0.1 10^3/uL (0.0-0.7); EOSINOPHILS % (AUTO) 1.3 %; HCT - HEMATOCRIT 42.2 % (37.0-47.0); HGB - HEMOGLOBIN 13.3 g/dL (12.0-16.0); LYMPHOCYTES # (AUTO) 1.5 10^3/uL (1.5-3.5); LYMPHOCYTES % (AUTO) 20.8 %; MEAN CORPUSCULAR HEMOGLOBIN 28.4 pg (27.0-31.0); MEAN CORPUSCULAR HGB CONC 31.5 g/dL (32.0-36.0); MEAN PLATELET VOLUME 11.5 fL (7.9-10.8); MONOCYTES # (AUTO) 0.5 10^3/uL (0.0-1.0); MONOCYTES % (AUTO) 6.6 %; NEUTROPHILS # (AUTO) 4.9 10^3/uL (1.5-6.6); NEUTROPHILS % (AUTO) 69.3 %; PLT - PLATELET COUNT 224 10^3/uL (130-450); RED BLOOD COUNT 4.69 10^6/uL (4.20-5.40); RED CELL DISTRIBUTION WIDTH 13.2 % (12.0-15.0); WHITE BLOOD COUNT 7.1 x10^3/uL (4.8-10.8)
[2022-11-14 12:11] LABS: PT - PROTHROMBIN TIME 11.8 secs (9.9-12.6)
[2022-11-14 12:18] LABS: ALBUMIN 4.1 g/dL (3.2-5.5); ALBUMIN/GLOBULIN RATIO 1.5 (1.0-2.2); BILIRUBIN,TOTAL 0.6 mg/dL (0.2-1.0); CALCIUM 8.8 mg/dL (8.5-10.3); CREATININE 0.7 mg/dL (0.4-1.0); POTASSIUM 3.6 mmol/L (3.5-5.0); TOTAL PROTEIN 6.8 g/dL (6.7-8.2)
--- NOTE | 2022-11-14 12:41 | CT Report ---
PROCEDURE: PELVIS WO INDICATIONS: GLF; hip; ? pelvic fx TECHNIQUE: Noncontrast 3 mm axial sections acquired through the bony pelvis, with coronal and sagittal reformatt ing. For radiation dose reduction, the following was used: automated exposure control, adjustment of mA and/or kV according to patient size. COMPARISON: Same day pelvic radiographs FINDINGS: Image quality: Excellent. Bones: There are mildly displaced fractures of the left superior and inferior pubic rami. No additio nal fractures are identified. The proximal femurs are intact. Advanced degenerative changes of the sp ine. There is transitional type anatomy of the lumbosacral junction with pseudoarthrosis on the left. Soft tissues: Colonic diverticulosis. No evidence of diverticulitis or other acute abnormality withi n the lower abdomen/pelvis. IMPRESSION: Mildly displaced fractures of the superior and inferior left pubic rami. Reviewed by: Redd Mars DO on 11/14/2022 11:40 AM BRAD Approved by: Redd Mars DO on 11/14/2022 11:40 AM BRAD Station ID: [id number]
[2022-11-14] MEDS ORDERED: DROPERIDOL 5 MG/2 ML VIAL IVP STA (14:02)
[2022-11-14] MEDS: ACETAMINOPHEN 500 MG TABLET PO PRN (16:26)
[2022-11-14] MEDS: oxyCODONE 5 MG TABLET PO PRN (16:27)
[2022-11-14] MEDS: ONDANSETRON 4 MG/2 ML VIAL IVP PRN (16:27)
[2022-11-14] MEDS ORDERED: PANTOPRAZOLE 40 MG TABLET PO STA (16:41)
[2022-11-14] MEDS ORDERED: lisinopriL 5 MG TABLET PO STA (18:04)
[2022-11-14] MEDS ORDERED: METOPROLOL TARTRATE 50 MG TABLET PO STA (18:04)
[2022-11-15] MEDS ORDERED: PANTOPRAZOLE 40 MG TABLET PO SCH (07:00)
[2022-11-15] MEDS ORDERED: ALBUTEROL NEB 2.5 MG/3 ML INH STA (08:05)
[2022-11-15] MEDS ORDERED: ENOXAPARIN 40 MG/0.4 ML SYRINGE SUBQ SCH (09:00)
[2022-11-15] MEDS: ONDANSETRON 4 MG/2 ML VIAL IVP PRN (09:12)
[2022-11-15] MEDS: oxyCODONE 5 MG TABLET PO PRN (09:12)
--- NOTE | 2022-11-15 09:50 | ED Physician Documentation ---
ED Addendum - Addendum Addendum: 11/15/22 09:49 The patient was appearing comfortable this morning. She had a little bit of pain developing and has as needed oral medicines ordered. Nursing was getting those. Otherwise she was having a little bit of breakfast. She is slated to go to [facility] this afternoon for rehab care of her pelvic fracture subsequent to a fall. She is still agreeable to that. They are expected early afternoon to transfer her over due to unhealed fractures.
[2022-11-15 10:16] VITALS: BP 131/76
[2022-11-15] MEDS: ACETAMINOPHEN 500 MG TABLET PO PRN (13:17)
== END 2022-11-15 13:17 | disposition home or self-care (01) ==
LOC: EDUNIT# → ED 11:22
DX: S32.512A Fracture of superior rim of left pubis, initial encounter for closed fracture (principal); S32.592A Other specified fracture of left pubis, initial encounter for closed fracture; W01.0XXA Fall on same level from slipping, tripping and stumbling without subsequent striking against object, initial encounter; Y93.01 Activity, walking, marching and hiking; I10 Essential (primary) hypertension; J44.9 Chronic obstructive pulmonary disease, unspecified; Z99.81 Dependence on supplemental oxygen; Z79.899 Other long term (current) drug therapy; Z79.51 Long term (current) use of inhaled steroids
CPT/HCPCS: 36415; 72192; 73502; 80053; 83690; 85025; 85610; 94640; 96372; 96374; 96375; 96376; 99284; 99285; A9270; J1170; J1650

== ENCOUNTER 2022-11-15 13:20 | Outpatient (CLI) | payer MEDICARE, OTHER | END 2022-11-15 23:59 | LOC: EMS 13:20 | PROVIDERS: ATTEND Emergency Medicine | DX: S32.502A Unspecified fracture of left pubis, initial encounter for closed fracture (principal); W19.XXXA Unspecified fall, initial encounter | CPT/HCPCS: A0425; A0428 ==

== ENCOUNTER 2022-11-19 07:31 | Outpatient (CLI) | payer MEDICARE, OTHER ==
[2022-11-19 07:38] LABS: BASOPHILS % (AUTO) 0.6 %; EOSINOPHILS # (AUTO) 0.1 10^3/uL (0.0-0.7); EOSINOPHILS % (AUTO) 2.7 %; HCT - HEMATOCRIT 38.4 % (37.0-47.0); HGB - HEMOGLOBIN 12.2 g/dL (12.0-16.0); LYMPHOCYTES # (AUTO) 1.1 10^3/uL (1.5-3.5); LYMPHOCYTES % (AUTO) 20.7 %; MEAN CORPUSCULAR HEMOGLOBIN 28.6 pg (27.0-31.0); MEAN CORPUSCULAR HGB CONC 31.8 g/dL (32.0-36.0); MEAN CORPUSCULAR VOLUME 90.1 fL (81.0-99.0); MONOCYTES # (AUTO) 0.5 10^3/uL (0.0-1.0); MONOCYTES % (AUTO) 8.6 %; NEUTROPHILS # (AUTO) 3.5 10^3/uL (1.5-6.6); PLT - PLATELET COUNT 214 10^3/uL (130-450); RED BLOOD COUNT 4.26 10^6/uL (4.20-5.40); RED CELL DISTRIBUTION WIDTH 13.4 % (12.0-15.0); WHITE BLOOD COUNT 5.2 x10^3/uL (4.8-10.8)
[2022-11-19 07:40] LABS: SLIDE REVIEW? Indicated
[2022-11-19 07:49] LABS: ALBUMIN 3.6 g/dL (3.2-5.5); ALBUMIN/GLOBULIN RATIO 1.4 (1.0-2.2); BILIRUBIN,TOTAL 0.9 mg/dL (0.2-1.0); CALCIUM 8.7 mg/dL (8.5-10.3); CREATININE 0.6 mg/dL (0.4-1.0); POTASSIUM 3.6 mmol/L (3.5-5.0); TOTAL PROTEIN 6.2 g/dL (6.7-8.2)
== END 2022-11-19 07:32 | disposition home or self-care (01) ==
LOC: LAB.R 07:31
DX: E87.8 Other disorders of electrolyte and fluid balance, not elsewhere classified (principal); D64.9 Anemia, unspecified
CPT/HCPCS: 80053; 85025

== ENCOUNTER 2024-04-14 14:31 | Outpatient (CLI) | payer MEDICARE, OTHER | END 2024-04-14 23:59 | disposition short-term general hospital (02) | LOC: EMS 14:31 | DX: M25.551 Pain in right hip (principal); M25.552 Pain in left hip; R07.81 Pleurodynia; W18.39XA Other fall on same level, initial encounter; Y93.01 Activity, walking, marching and hiking; Y92.098 Other place in other non-institutional residence as the place of occurrence of the external cause | CPT/HCPCS: A0425; A0429 ==